=== PATIENT | female | born 1990 ===

== ENCOUNTER 2020-07-10 16:04 | Emergency (ER) | payer OTHER, MEDICAID ==
[~2020-07-10] VITALS: Ht 154.9 cm; Wt 63.5 kg
[2020-07-10 16:31] VITALS: BP 118/78
[2020-07-10] MEDS ORDERED: KETOROLAC TROMETH 60MG/2ML VIAL IM ONE (18:00)
== END 2020-07-10 18:37 | disposition home or self-care (01) ==
LOC: ER 16:04 → EDSEX 16:04 → EDBD 16:04 → ER 18:36
DX: S16.1XXA Strain of muscle, fascia and tendon at neck level, initial encounter (principal); S93.601A Unspecified sprain of right foot, initial encounter; V43.52XA Car driver injured in collision with other type car in traffic accident, initial encounter; Y93.89 Activity, other specified; Y92.488 Other paved roadways as the place of occurrence of the external cause; Y99.8 Other external cause status
CPT/HCPCS: 72040; 73630; 96372; 99284; J1885

== ENCOUNTER 2022-11-27 23:40 | Emergency (ER) | payer MEDICAID, OTHER ==
[~2022-11-27] VITALS: Ht 154.9 cm; Wt 77.5 kg
[2022-11-28 00:37] LABS: Basophils # (auto) 0 10 ^3/uL (0-0.2); Basophils % (auto) 0.5 % (0.0-2.0); Eosinophils # (auto) 0.1 10 ^3/uL (0-0.8); Eosinophils % (auto) 0.8 % (0.0-7.0); Hematocrit 32.9 % (36.0-46.0); Hemoglobin 11.5 g/dL (12.2-16.2); Lymphocytes # (auto) 2.5 10 ^3/uL (0.4-5.4); Mean Corpuscular Hemoglobin 29.6 pg (28.0-32.0); Mean Corpuscular Hgb Conc. 34.8 g/dL (32.0-36.0); Mean Corpuscular Volume 85.1 fL (80.0-100.0); Monocytes # (auto) 0.6 10 ^3/uL (0-1.3); Monocytes % (auto) 6.6 % (0.0-12.0); Neutrophils # (auto) 5.2 10 ^3/uL (1.6-8.6); Neutrophils % (auto) 62.1 % (37.0-80.0); Red Blood Cells 3.87 10^6/uL (4.0-5.20); Red Cell Distribution Width 14.2 % (11.8-14.3); White Blood Cell 8.3 10^3/uL (4.4-10.8)
[2022-11-28 00:42] LABS: Urine Specific Gravity 1.024 (1.001-1.035)
[2022-11-28 00:43] LABS: Urine Blood 2+ /uL (Negative)
[2022-11-28 00:46] LABS: Urine Bacteria FEW /hpf (None Seen); Urine Mucus FEW (None Seen); Urine WBC 2 /hpf (0 - 5)
[2022-11-28 00:50] LABS: Alanine Aminotransferase 16 U/L (13-56); Albumin 3.3 g/dL (3.4-5.0); Anion Gap 8 (5-15); Aspartate Aminotransferase 14 U/L (15-37); BUN/Creatinine Ratio 23.2 (10.0-20.0); Blood Urea Nitrogen 16 mg/dL (7-18); Calcium 8.8 mg/dL (8.5-10.1); Carbon Dioxide 23 mmol/L (21-32); Chloride 106 mmol/L (98-107); GFR African American 128 mL/min; GFR Non-African American 105 mL/min; Glucose 85 mg/dL (74-106); Potassium 3.3 mmol/L (3.5-5.1); Sodium 137 mmol/L (136-145)
[2022-11-28 00:52] LABS: Alkaline Phosphatase 43 U/L (45-117); Bilirubin, Total < 0.1 mg/dL (0.2-1.0); Total Protein 7.1 g/dL (6.4-8.2)
[2022-11-28] MEDS ORDERED: DOXY10TA PO (05:54)
[2022-11-28] MEDS ORDERED: NITR-87 PO (05:54)
[2022-11-28] MEDS ORDERED: PRENCAP11 PO (05:54)
[2022-11-28] MEDS ORDERED: cefTRIAXone SOD 1,000 MG VL IM ONE (06:00)
[2022-11-28] MEDS ORDERED: POTASSIUM EFFERVESENT TAB 25 MEQ PO ONE (06:00)
[2022-11-28 06:45] VITALS: BP 118/58
[2022-11-28] MEDS ORDERED: ONDANSETRON ODT 4 MG TAB PO ONE (06:45)
== END 2022-11-28 06:55 | disposition home or self-care (01) ==
LOC: ER 23:40
DX: O23.41 Unspecified infection of urinary tract in pregnancy, first trimester (principal); O99.011 Anemia complicating pregnancy, first trimester; O99.281 Endocrine, nutritional and metabolic diseases complicating pregnancy, first trimester; E88.09 Other disorders of plasma-protein metabolism, not elsewhere classified; E87.6 Hypokalemia; E86.0 Dehydration; R10.2 Pelvic and perineal pain; Z3A.01 Less than 8 weeks gestation of pregnancy
CPT/HCPCS: 36415; 76801; 80053; 81001; 84702; 85025; 96372; 99285; J0696; Q0162